=== PATIENT | female | born 1975 | race Caucasian/White ===

== ENCOUNTER 2025-05-22 12:58 | Outpatient (OUT) | payer BC, SELFPAY ==
--- NOTE | 2025-05-22 13:05 | MM_ITS ---
Patient Name: DENA PENNY MR#: [id number] : 1975 Exam Date: 05/22/2025 Ordering Doctor: DR YANNICK AGRAWAL M.D. RADIOLOGY REPORT PROCEDURE: MM TOMOSYNTHESIS SCREENING BI COMPARISON: MG MAMM DX 3D RT CAD, 08/30/2024. MG MAMM [facility] DI[facility] FU, 05/24/2024. INDICATIONS: Screening Calculator Name NCI Breast Cancer Risk Assessment Tool 5 Year Breast Cancer Risk 0.80% Lifetime Breast Cancer Risk 8.30% Personal Breast Cancer No Personal Ovarian Cancer No Treatments None Family Cancers None LOCATION: [facility] BREAST COMPOSITION: There are scattered areas of fibroglandular density. FINDINGS: RIGHT BREAST: No significant suspicious finding. LEFT BREAST: No significant suspicious finding. DIAGNOSTIC CATEGORY 1--NEGATIVE. RECOMMENDATIONS: ROUTINE MAMMOGRAM AND CLINICAL EVALUATION IN 12 MONTHS. PLEASE NOTE: A NORMAL MAMMOGRAM DOES NOT EXCLUDE THE POSSIBILITY OF BREAST CANCER. A CLINICALLY SUSPICIOUS PALPABLE LUMP SHOULD BE BIOPSIED. Dictated by: Rock Medeiros MD on 05/22/2025 at 15:04 Approved by: Rock Medeiros MD on 05/22/2025 at 15:06
== END 2025-05-22 12:59 | disposition home or self-care (01) ==
LOC: MAMMO 13:01
PROVIDERS: PCP Family Medicine; Visit Provider Family Medicine
DX: Z12.31 Encounter for screening mammogram for malignant neoplasm of breast (principal)
CPT/HCPCS: 77063; 77067